=== PATIENT | male | born 1985 | race Caucasian/White ===

== ENCOUNTER → 2020-09-12 | Outpatient (CLI) | payer OTHER | LOC: RAD 10:05 | DX: M54.2 Cervicalgia (principal); M54.9 Dorsalgia, unspecified; R05 Cough; Q79.8 Other congenital malformations of musculoskeletal system; M47.814 Spondylosis without myelopathy or radiculopathy, thoracic region; M48.07 Spinal stenosis, lumbosacral region | CPT/HCPCS: 71046; 72050; 72072; 72110 ==

== ENCOUNTER → 2021-01-09 | Outpatient (CLI) | payer OTHER | LOC: HEART 5 01-07 11:00 | DX: R07.9 Chest pain, unspecified (principal) ==